=== PATIENT | male | born 1965 | race Caucasian/White ===

== ENCOUNTER 2017-03-24 19:04 | Emergency (ER) | payer OTHER ==
--- NOTE | 2017-03-25 05:10 | ER ---
ADMIT: 03/24/2017 RM/LOC: ER [facility] MR#: [id number] [address] [id number] [place], ALONDRA SCHAFER [address] [place] [address] Emergency Room Report SEX: M AGE: 51 : 1965 DATE: 03/24/2017 The patient is a 51-year-old male, traveling cross country from [place], woke with toothache and right facial swelling. Denies any fever, pain, or oral discharge. Exam remarkable for periodontal infection #5 and 6 tooth. No obvious dental carries or tenderness to percussion. Offered dental injection for pain, patient declined. Covered with Pen-VK 1 g p.o. in department, 500 mg q.i.d. x7 days. Hydrocodone 5/325 one to two q.i.d. p.r.n. #20 plus 6 from Pyxis. Follow up dentist within 24 hours. Philipp Harman MD/ mo JOB #: [id number] CC: Philipp Harman MD, Attending Physician Nirmal Lauren MD, Family Physician Nirmal Lauren MD
== END 2017-03-24 20:45 | disposition home or self-care (01) ==
LOC: ER 19:04
DX: K05.219 Aggressive periodontitis, localized, unspecified severity (principal); Z90.89 Acquired absence of other organs